=== PATIENT | male | born 1940 | race Caucasian/White ===

== ENCOUNTER 2017-01-09 04:55 | Inpatient (IN) | payer MEDICARE, OTHER ==
[~2017-01-09 04:55] MED LIST: ASPIRIN81 M1 PO; ENTOCORT EC3 M1 PO; METOPROLOL TART25 M1 PO; MULTIVITAMINS1 EAC6 PO; SYNTHROID50 MC1 PO; XALATAN2.5 M1 EACH EYE
[2017-01-10 05:09] LABS: ANION GAP 11 mmol/L (0-20); BLOOD UREA NITROGEN 16 mg/dl (6-24); CALCIUM 8.3 mg/dl (8.5-10.5); CARBON DIOXIDE-VENOUS 28 mmol/L (22-32); CHLORIDE 106 mmol/l (96-110); CREATININE 1.03 mg/dl (0.60-1.30); GLUCOSE 121 mg/dL (70-110); POTASSIUM 4.2 mmol/L (3.7-5.1); SODIUM 141 mmol/L (135-145); eGFR VALUE FOR BLACK 80 mL/Min
[2017-01-11] MEDS ORDERED: HYDROCODON-ACE1 EA16 PO (11:47)
[2017-01-11] MEDS ORDERED: TYLENOL325 M2 PO (11:48)
[2017-01-11] MEDS ORDERED: ROBAXIN-750750 M1 PO (11:49)
[2017-01-11] MEDS ORDERED: SENOKOT-S TABL1 EACH PO (11:50)
== END 2017-01-11 13:55 | DRG 460 ==
LOC: SHSC 04:55 → ORE 06:51 → PACU 10:04 → 5EA 11:27
PROVIDERS: ADMIT Neurological Surgery
PROC: 0SG00AJ Fusion of Lumbar Vertebral Joint with Interbody Fusion Device, Posterior Approach, Anterior Column, Open Approach (ICD-10-PCS; principal; 2017-01-09)
PROC: 0SB20ZZ Excision of Lumbar Vertebral Disc, Open Approach (ICD-10-PCS; 2017-01-09)
PROC: 07DR3ZZ Extraction of Iliac Bone Marrow, Percutaneous Approach (ICD-10-PCS; 2017-01-09)
DX: M48.06 Spinal stenosis, lumbar region (principal); I48.92 Unspecified atrial flutter; I10 Essential (primary) hypertension; M43.16 Spondylolisthesis, lumbar region; M54.16 Radiculopathy, lumbar region; E03.9 Hypothyroidism, unspecified; H40.9 Unspecified glaucoma; K57.90 Diverticulosis of intestine, part unspecified, without perforation or abscess without bleeding; Z79.82 Long term (current) use of aspirin
CPT/HCPCS: C1713; J0690; J1170; J2405; J2800; J3010; J3370